=== PATIENT | male | born 1965 | race Two or more races ===

== ENCOUNTER 2020-07-12 08:59 | Outpatient (CLI) | payer OTHER | END 2020-07-12 09:04 | disposition home or self-care (01) | LOC: RAD 08:59 | PROVIDERS: ATTEND Internal Medicine Cardiovascular Disease | DX: G95.89 Other specified diseases of spinal cord (principal); N20.0 Calculus of kidney; M46.47 Discitis, unspecified, lumbosacral region ==

== ENCOUNTER 2020-07-14 09:12 | Outpatient (CLI) | payer OTHER | END 2020-07-14 09:21 | disposition home or self-care (01) | LOC: NUCLEAR 09:12 | PROVIDERS: ATTEND Internal Medicine Cardiovascular Disease | DX: I10 Essential (primary) hypertension (principal); I87.2 Venous insufficiency (chronic) (peripheral) ==

== ENCOUNTER 2022-11-07 07:31 | Outpatient (CLI) | payer OTHER | END 2022-11-07 11:55 | disposition home or self-care (01) | LOC: NUCLEAR 07:31 | PROVIDERS: ATTEND Internal Medicine Cardiovascular Disease | DX: I10 Essential (primary) hypertension (principal); R07.9 Chest pain, unspecified ==